=== PATIENT | female | born 1975 | race American Indian/Alaskan Native ===

== ENCOUNTER 2017-01-13 08:40 | Emergency (ER) | payer OTHER ==
[2016-12-16 06:43] VITALS: BMI 32.5
[2017-01-13 22:22] LABS: ADD MANUAL DIFF? NO
[2017-01-14 12:35] LABS: BASO # 0.03 K/mm3 (0.0-2.0); BASO % 0.9 % (0.0-3.0); EOS # 0.1 (0.0-0.7); EOS % 3.1 % (1.5-5.0); GRAN # 1.65 (1.4-6.5); HEMATOCRIT 30.7 % (36.0-48.0); LYMPH # 1.1 (1.2-3.4); LYMPH % 33.3 % (22.0-35.0); MEAN CELL VOLUME 77.5 fL (80.0-105.0); MEAN CORPUSCULAR HEMOGLOBIN 28.8 pg (25.0-35.0); MEAN CORPUSCULAR HGB CONC 37.1 g/dl (31.0-37.0); MEAN PLATELET VOLUME 8.8 fl (7.0-11.0); MONO # 0.3 (0.1-0.6); MONO % 10.7 % (1.0-6.0); PLATELET COUNT 205 10^3/uL (120.0-450.0); RED CELL DISTRIBUTION WIDTH 12.5 % (11.5-14.5); WHITE BLOOD COUNT 3.2 10^3/ul (4.5-11.0)
[2017-01-14 16:08] LABS: BLOOD UREA NITROGEN 16 mg/dL (7-21); CALCIUM 9.7 mg/dL (8.4-10.5); CARBON DIOXIDE 26 mmol/L (21-33); CHLORIDE 93 mmol/L (98-107); GFR AFRICAN-AMERICAN > 60; MAGNESIUM 1.7 mg/dL (1.7-2.2); POTASSIUM 4.6 mmol/L (3.6-5.0); SODIUM 130 mmol/L (132-148)
[2017-01-14 16:14] LABS: GLUCOSE,RANDOM 599 mg/dL (70-110)
[2017-01-14 19:53] LABS: VENOUS BLOOD PH 7.35 (7.32-7.43)
[2017-01-14 19:54] LABS: VENOUS BLOOD GAS BASE EXCESS 2.8 mmol/L (0.0-2.0)
== END 2017-01-13 22:26 | disposition home or self-care (01) ==
LOC: ED 08:40
DX: E11.65 Type 2 diabetes mellitus with hyperglycemia (principal); M32.9 Systemic lupus erythematosus, unspecified